=== PATIENT | female | born 1950 | race Caucasian/White ===

== ENCOUNTER 2023-12-10 11:27 | Emergency (ER) | payer OTHER ==
[~2023-12-10] VITALS: Ht 167.6 cm; Wt 86.4 kg
[2023-12-10 11:47] VITALS: TEMP 97
[2023-12-10 13:00] VITALS: BP 141/72; PULSE 68; O2SAT 97
[2023-12-10 13:10] VITALS: RESP 16
[2023-12-10] MEDS: HYDROcodone/acetaminophen 10/325mg tab PO ONE (13:10)
== END 2023-12-10 13:35 | disposition home or self-care (01) ==
LOC: ER 11:27
DX: S13.4XXA Sprain of ligaments of cervical spine, initial encounter (principal); S00.03XA Contusion of scalp, initial encounter; M62.838 Other muscle spasm; G35 Multiple sclerosis; W18.30XA Fall on same level, unspecified, initial encounter; Z91.81 History of falling; Y93.89 Activity, other specified; Y92.89 Other specified places as the place of occurrence of the external cause; Y99.8 Other external cause status
CPT/HCPCS: 70450; 72125; 99284